=== PATIENT | female | born 1995 | race African-American/Black ===

== ENCOUNTER 2019-12-02 15:13 | Emergency (ER) | payer SELFPAY ==
[~2019-12-02] VITALS: Ht 160 cm; Wt 59.1 kg
[2019-12-02 17:19] VITALS: BP 116/76
[2019-12-02] MEDS ORDERED: ALBUTEROL SULFATE HFA 90 MCG/PUFF 8 GM INHALER IH ONE (18:00)
== END 2019-12-02 18:15 | disposition home or self-care (01) ==
LOC: EMS 15:16
DX: J45.909 Unspecified asthma, uncomplicated (principal)
CPT/HCPCS: 94640; J3535